=== PATIENT | female | born 2005 | race Caucasian/White ===

== ENCOUNTER 2025-08-04 19:38 | Observation (INO) | payer BC, MEDICAID, SELFPAY ==
[2025-08-04] VITALS (51 sets, daily range): BP systolic 108–120; BP diastolic 61–79; PULSE 69–109; RESP 16; TEMP 36.7; O2SAT 96–100; BMI 24.5
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
[2025-08-04 20:54] LABS: Hematocrit 35.1 % (37.0-47.0); Hemoglobin 11.9 g/dL (12.0-15.0); Mean Corpuscular HGB Conc 33.9 g/dl (32-36); Mean Corpuscular Hemoglobin 29.8 pg (26-34); Mean Corpuscular Volume 88.0 fl (80-100); Platelet Count Result 190 k/mm3 (150-375); Red Blood Count 3.99 M/mm3 (4.2-5.4); White Blood Count 11.1 K/mm3 (4.5-10.0)
[2025-08-04] MEDS: TERBUTALINE SULFATE 1 MG/ML VIAL 0.25 MG SUB-Q (21:26)
[2025-08-04] MEDS: ACETAMINOPHEN 500 MG TABLET 1000 MG PO (21:26)
--- NOTE | 2025-08-04 22:37 | OBADM ---
This patient, Ramandeep Resendiz, admitted to the OB room [facility] for observation. Patient/family oriented to hospital policies and general routines including ID bracelet, bed and alarms, visiting hours, pain management, procedures, bathroom and other care routines, personal items, smoking policy, room service/diet, and visiting hours. Patient/Family are encouraged to report perceived risks to care and to ask questions if they do not understand what they are told or what they should do.
[2025-08-05] VITALS (24 sets, daily range): BP systolic 103–111; BP diastolic 55–67; PULSE 73–109; TEMP 36.6; O2SAT 97–99
--- NOTE | 2025-08-05 01:24 | PC.NURSE ---
Call placed to Dr. Levin update on Pt labs, U/S (Preliminary), FHR, CTX, SVE. Pt stated she is feeling a lot better, she does not have any more cramping or back pain. Order to d/c pt home and follow up with regular OB
--- NOTE | 2025-08-05 01:52 | PC.NURSE ---
Pt discharged home undelivered in stable condition per order from Dr. eLvin, Discussed and provided printed discharge instructions, all questions and concerns answered. PT stated understanding. Pt ambulated out of department with all belongings. S.O @ pt side.
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
== END 2025-08-05 01:58 | disposition home or self-care (01) ==
PROVIDERS: Admitting Provider Obstetrics & Gynecology; Visit Provider Obstetrics & Gynecology
DX: O9A.213 Injury, poisoning and certain other consequences of external causes complicating pregnancy, third trimester (principal); Z3A.34 34 weeks gestation of pregnancy; V89.2XXA Person injured in unspecified motor-vehicle accident, traffic, initial encounter
CPT/HCPCS: 36415; 76815; 85027; 85460; 96372; A9270; G0378; G0379; J3105

== ENCOUNTER 2025-09-01 15:38 | Outpatient (CLI) | payer BC, MEDICAID, SELFPAY ==
[2025-09-01] VITALS (9 sets, daily range): BP systolic 109–117; BP diastolic 69–84; PULSE 60–99; TEMP 36.7; O2SAT 98–100; BMI 24.9
--- OUTSIDE RECORDS SUMMARY | 2025-09-01 15:43 | XMS_ITS | Encounter Summary ---
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
[2025-09-01 16:07] LABS: Hematocrit 37.7 % (37.0-47.0); Hemoglobin 12.1 g/dL (12.0-15.0); Immature Granulocyte Percent A 0.4 % (0-0.5); Lymphocytes Absolute Auto 1.25 K/mm3 (0.9-3.2); Mean Corpuscular HGB Conc 32.1 g/dl (32-36); Mean Corpuscular Hemoglobin 28.4 pg (26-34); Mean Corpuscular Volume 88.5 fl (80-100); Nucleated Red Blood Cells Absolute Auto 0.000 K/mm3 (0.0-0.012); Nucleated Red Blood Cells Perc 0.0 % (0.0-0.2); Platelet Count Result 219 k/mm3 (150-375); Red Blood Count 4.26 M/mm3 (4.2-5.4); White Blood Count 8.1 K/mm3 (4.5-10.0)
[2025-09-01 16:13] LABS: Add Urine Microscopic? YES; Appearance Urine Clear (Clear); Glucose Urine UA Negative (Negative); Leukocyte Esterase Ur 2+ LEU/UL (Negative); Nitrate Urine Negative (Negative); Non Pathogenic Casts 0-2; Specific Grav Ur 1.015 (1.001-1.035)
[2025-09-01 16:22] LABS: Alanine Aminotransferase 20 U/L (6-35); Albumin Level 3.5 g/dL (3.5-5.1); Alkaline Phosphatase 226 U/L (38-126); Anion Gap 7 mmol/L (4-12); Aspartate Amino Transferase 32 U/L (14-36); Bilirubin,Total 0.4 mg/dL (0.2-1.3); Blood Urea Nitrogen 9 mg/dL (7-17); Calcium 9.1 mg/dL (8.4-10.2); Carbon Dioxide 21 mmol/L (22-30); Chloride 105 mmol/L (98-107); Estimated Glomerular Filt Rate > 60; Glucose 90 mg/dL (65-110); Potassium 3.6 mmol/L (3.4-5.0); Sodium 133 mmol/L (137-145); Total Protein 7.1 g/dL (6.3-8.2); Uric Acid 5.3 mg/dL (2.5-7.5)
[2025-09-01 16:23] LABS: Total Protein Urine Random 11 mg/dL; Ur Ttl Prot Creatinine Ratio 0.13 mg/mg (0-0.20)
--- NOTE | 2025-09-01 16:44 | PC.NURSE ---
Addendum entered by Dorina Chan RN 09/01/25 16:56: 1550- Patient arrives to OB unit with complaints of an episode at work that consisted of blurred vision in her left eye and pain on the left side of her head, dizziness, and that patient states she felt like her body was moving in slow motion. Patient also states she felt a tingling zing on her left arm. Patient states she is a . Patient does not see a provider at this facility. Patient states she did have an episode of contractions and she had to be given medication to stop them, but no other complications this . Patient denies any vaginal bleeding or leaking of fluid. Patient states she has positive movement. Patient states this was a brief episode at work and resolved itself quickly, but she does still have a lingering headache. Patient states she felt a cramp at the same time, but nothing since. Abdomen is soft to palpation. Original Note: 1550- Patient arrives to OB unit with complaints of an episode at work that consisted of blurred vision in her left eye and pain on the left side of her head, dizziness, and that patient states she
--- NOTE | 2025-09-01 16:56 | PC.NURSE ---
1630- RN notified Dr. Dubon of patient arrival and patient complaints. RN notified MD of lab results, VS, as well as physical assessment. MD gave orders to d/c patient and have her take tylenol at home. 1635- RN at bedside discussing plan of care, patient agrees with plan of care and has no questions at this time.
== END 2025-09-01 16:50 | disposition home or self-care (01) ==
LOC: ANHOBPP 15:43 → ANHOBOP 15:49 → ANHOBPP 16:05
PROVIDERS: Visit Provider Obstetrics & Gynecology
DX: O26.899 Other specified pregnancy related conditions, unspecified trimester (principal); R10.9 Unspecified abdominal pain; H53.9 Unspecified visual disturbance
CPT/HCPCS: 36415; 59025; 80053; 81001; 82570; 84156; 84550; 85025; 87086